=== PATIENT | female | born 1980 | race Caucasian/White ===

== ENCOUNTER 2018-10-18 19:06 | Emergency (ER) | payer OTHER ==
[~2018-10-18] VITALS: Ht 172.7 cm; Wt 52.2 kg
[~2018-10-18 19:06] MED LIST: APAP500 PO; CLARITIN10 MG PO; DERMOPLAST SPRA56 ML; NOHOMEMEDICATIONS; NORCO 5-325 TA1 EACH; PHENERGAN 25 MG25 M1 PO; TRAMADOL 50 MG50 MG PO; TUCKS MEDICATE1 EAC1; ULTRAM 50MG TAB50 MG PO
[2018-10-18 20:37] LABS: ABSOLUTE BASOPHILS 0.1 thou/uL (0.0-0.2); ABSOLUTE EOSINOPHILS 0.3 thou/uL (0.0-0.7); ABSOLUTE LYMPHOCYTES 1.6 thou/uL (0.8-5.3); ABSOLUTE MONOCYTES 0.7 thou/uL (0.0-1.2); ABSOLUTE NEUTROPHILS 8.6 thou/uL (1.6-8.1); BASOPHILS 0.6 %; EOSINOPHILS 2.4 %; HEMOGLOBIN 14.2 gm/dL (12.0-15.0); LYMPHOCYTES 13.8 %; MCHC 33.8 g/dL (28.0-37.0); MCV 94.7 fL (80.0-100.0); MONOCYTES 6.5 %; MPV 7.7 fl. (7.2-11.1); NUCLEATED RBCS 0 /100WBC; PLATELET COUNT* 211 thou/uL (150-400); POLYS 76.7 %; RBC 4.44 mil/uL (4.20-5.00); RDW-CV 13.7 % (10.5-14.5); WBC 11.2 thou/uL (4.0-11.0)
[2018-10-18 20:55] LABS: ALBUMIN 3.9 g/dL (3.4-5.0); ALKALINE PHOSPHATASE 41 U/L (46-116); ANION GAP 8 mmol/L (7-16); BUN 13 mg/dL (7-18); CALCIUM 8.7 mg/dL (8.5-10.1); CHLORIDE 103 mmol/L (98-107); CO2 25 mmol/L (21-32); CREATININE 0.7 mg/dL (0.6-1.3); GLUCOSE 88 mg/dL (70-99); POTASSIUM 3.6 mmol/L (3.5-5.1); SGOT 20 U/L (15-37); SGPT 25 U/L (30-65); SODIUM 136 mmol/L (136-145); TOTAL BILIRUBIN 0.9 mg/dL (<0.1-1.0); TOTAL PROTEIN 7.1 g/dL (6.4-8.2); TROPONIN-I LEVEL <0.06 ng/mL (<0.06)
[2018-10-18 21:54] VITALS: BP 0/0
--- NOTE | 2018-10-19 13:19 | EKG ---
[place] [address] ELECTROCARDIOGRAM REPORT Name: KEZIAKAZ Young Room: [facility]#: [id number] Admission: 10/18/18 Attend Phys: Discharge: 10/18/18 Date of : 78 Report #: [id number] THIS REPORT FOR: //name// [facility] ED Test Date: 2018-10-18 Test Time: 20:18:33 Pat Name: KAZ MAST Department: Room: Gender: F Band Cutter: Elena JAQUEZ : 1980 Requested By: Rosalee Saldivar Order Number: [id number] MD: Mykel Hilario Measurements Intervals [place] Rate: 65 P: 79 ME: 137 QRS: 83 QRSD: 95 T: 74 QT: 417 QTc: 434 Interpretive Statements Sinus rhythm RSR' in V1 or V2, probably normal variant Nonspecific T abnrm, anterolateral leads Compared to ECG 08/17/2016 21:29:08 RSR' in V1 or V2 now present Electronically Signed On 10-19-2018 13:19:39 [employer] by Mykel Hilario [email or web address] <ELECTRONICALLY SIGNED> By: Mykel Hilario MD, FAC 10/19/18 1319 17 17 Mykel Hilario MD, [facility] /EPI
== END 2018-10-18 21:56 | disposition home or self-care (01) ==
LOC: M.ERS 19:06
PROVIDERS: Personal Emergency Response Attendant
DX: M79.18 Myalgia, other site (principal); R59.1 Generalized enlarged lymph nodes; F17.210 Nicotine dependence, cigarettes, uncomplicated; Z91.040 Latex allergy status; Z88.6 Allergy status to analgesic agent; Z88.5 Allergy status to narcotic agent; Z88.8 Allergy status to other drugs, medicaments and biological substances